=== PATIENT | male | born 1955 | race American Indian/Alaskan Native ===

== ENCOUNTER 2020-04-10 12:17 | Emergency (ER) | payer SELFPAY ==
[2020-04-10 12:56] VITALS: BP 104/64
--- NOTE | 2020-04-10 13:28 | Emergency Department Report ---
ED Back Pain/Injury HPI - General Chief Complaint: Back Pain/Injury Stated Complaint: BACK PAIN Time Seen by Provider: 04/10/20 13:23 Source: patient Limitations: No Limitations - History of Present Illness Initial Comments: 64-year-old male with past medical history of HIV presents emergency department complaining of chronic back pain which is worsened yesterday when he lifted a sofa but also primarily needs a refill of his medications not related to his chronic cough history. Reports no numbness or tingling to his groin area there is no saddle paresthesias or significant loss of bowel or bladder. MD Complaint: back pain Similar Symptoms Previously: Yes Place: home Severity: mild Quality: aching Consistency: constant Improves With: none Worsens With: movement Context: while lifting, turning/twisting Associated Symptoms: denies: confusion, chest pain, difficulty walking, incontinence, constipation, headaches, abdominal pain, rash, seizure, shortness of breath - Related Data Home Medications Medication Instructions Recorded Confirmed Last Taken Elviteg/Melissa/Emtric/Tenofo Ala 1 each PO DAILY 03/31/16 03/31/16 03/31/16 [Genvoya (Nf)] Previous Rx's Medication Instructions Recorded Last Taken Type Naproxen Sodium (Nf) [Anaprox DS 550 mg PO BID PRN #20 tablet 10/13/13 Unknown Rx TAB] levoFLOXacin [Levaquin TAB] 750 mg PO QDAY #7 tablet 04/03/16 Unknown Rx Allergies Allergy/AdvReac Type Severity Reaction Status Date / Time No Known Allergies Allergy Verified 10/13/13 06:34 ED Review of Systems ROS: Stated complaint: BACK PAIN Other details as noted in HPI Comment: All other systems reviewed and negative ED Past Medical Hx - Past Medical History Previous Medical History?: Yes Hx HIV: Yes ("about 20 years") - Surgical History Past Surgical History?: Yes Hx Appendectomy: Yes - Social History Smoking Status: Current Some Day Smoker Substance Use Type: None - Medications Home Medications: Home Medications Medication Instructions Recorded Confirmed Last Taken Type Naproxen Sodium (Nf) [Anaprox DS 550 mg PO BID PRN #20 tablet 10/13/13 03/31/16 Unknown Rx TAB] Elviteg/Melissa/Emtric/Tenofo Ala 1 each PO DAILY 03/31/16 03/31/16 03/31/16 History [Genvoya (Nf)] levoFLOXacin [Levaquin TAB] 750 mg PO QDAY #7 tablet 04/03/16 Unknown Rx ED Physical Exam - General Limitations: No Limitations General appearance: alert, in no apparent distress - Head Head exam: Present: atraumatic, normocephalic - Eye Eye exam: Present: normal appearance - ENT ENT exam: Present: mucous membranes moist - Neck Neck exam: Present: normal inspection - Respiratory Respiratory exam: Present: normal lung sounds bilaterally. Absent: respiratory distress - Cardiovascular Cardiovascular Exam: Present: regular rate, normal rhythm. Absent: systolic murmur, diastolic murmur, rubs, gallop - GI/Abdominal GI/Abdominal exam: Present: soft, normal bowel sounds - Rectal Rectal exam: Present: deferred - Extremities Exam Extremities exam: Present: normal inspection - Back Exam Back exam: Present: normal inspection, other (Negative seated straight leg raise. Normal Sebastian's test. No CVA tenderness is noted.) - Neurological Exam Neurological exam: Present: alert, oriented X3, CN II-XII intact - Psychiatric Psychiatric exam: Present: normal affect, normal mood - Skin Skin exam: Present: warm, dry, intact, normal color. Absent: rash ED Course Vital Signs 04/10/20 04/10/20 12:54 13:22 Temperature 97.8 F 97.8 F Pulse Rate 71 71 Respiratory 20 20 Rate Blood Pressure 104/64 104/64 O2 Sat by Pulse 98 98 Oximetry Critical care attestation.: If time is entered above; I have spent that time in minutes in the direct care of this critically ill patient, excluding procedure time. ED Disposition Clinical Impression: Medication refill, Chronic pain Disposition: Z-07 MED SCREENING EXAM-LEFT Is pt being admited?: No Does the pt Need Aspirin: No Condition: Stable Instructions: Chronic Back Pain (ED) Referrals: [facility] [Provider Group] - 3-5 Days
== END 2020-04-10 14:00 | disposition left against medical advice (07) ==
LOC: ED 12:17
DX: G89.29 Other chronic pain (principal); M54.89 Other dorsalgia; F17.200 Nicotine dependence, unspecified, uncomplicated; Z76.0 Encounter for issue of repeat prescription; Z90.49 Acquired absence of other specified parts of digestive tract
CPT/HCPCS: 99282

== ENCOUNTER 2020-12-23 16:52 | Emergency (ER) | payer SELFPAY ==
[2020-12-23 17:19] LABS: Basophils % (Auto) 0.3 % (0.0-1.8); Eosinophils # (Auto) 0.1 K/mm3 (0.0-0.4); Eosinophils % (Auto) 1.5 % (0.0-4.3); Hematocrit 43.6 % (35.5-45.6); Hemoglobin 14.7 gm/dl (11.8-15.2); Lymphocytes # (Auto) 1.2 K/mm3 (1.2-5.4); Mean Corpuscular HGB Conc 34 % (32-34); Mean Corpuscular Volume 91 fl (84-94); Monocytes # (Auto) 0.7 K/mm3 (0.0-0.8); Platelet Count 135 K/mm3 (140-440); Red Cell Distribution Width 13.5 % (13.2-15.2)
--- NOTE | 2020-12-23 17:30 | Event Note ---
ED Screening Note Date of service: 12/23/20 Time: 17:28 ED Screening Note: This initial assessment/diagnostic orders/clinical plan/treatment(s) is/are subject to change based on patients health status, clinical progression and re- assessment by fellow clinical providers in the ED. Further treatment and workup at subsequent clinical providers discretion. Patient/guardian urged not to elope from the ED as their condition may be serious if not clinically assessed and managed. Initial orders include: Mr. Herzog is a 65-year-old -[place] male with a history of being HIV positive states that he has been off his medicine for months now. He is complaining of right flank pain nausea loose stools and chills x2 weeks. He denies chest pain or shortness of breath no coughing.
[2020-12-23 17:39] LABS: Alanine Aminotransferase 13 units/L (7-56); Albumin 3.4 g/dL (3.9-5); BUN/Creatinine Ratio 15; Blood Urea Nitrogen 16 mg/dL (9-20); Calcium 8.2 mg/dL (8.4-10.2); Hemolysis Index 7
[2020-12-23 17:41] LABS: Bilirubin,Direct < 0.2 mg/dL (0-0.2)
[2020-12-23] MEDS ORDERED: ONDANSETRON 4 MG/2 ML INJ IV ONE (18:06)
[2020-12-23] MEDS ORDERED: SODIUM CHLORIDE 0.9% 1000 ML 1,000 ML IV ONE (18:06)
--- NOTE | 2020-12-23 18:08 | Emergency Department Report ---
HPI - General Chief Complaint: Abdominal Pain Time Seen by Provider: 12/23/20 17:56 - HPI HPI: This is a 65-year-old -[place] male presents to the emergency department with a 1 week history of right lower flank pain, nausea with vomiting, diarrhea and intermittent headaches. Patient has a history of HIV but admits to medication noncompliance. He does not have a primary care physician or infectious disease doctor that he follows with. He has not taken anything for symptoms prior to presentation. He denies any fever, chest pain, cough, dys uria. No recent travel or sick contacts at home. No known exposure to anyone with COVID-19. Certain movements exacerbate the flank pain, but no known alleviating factors. The flank pain is currently at a 7 out of 10 in intensity. ED Past Medical Hx - Past Medical History Hx HIV: Yes ("about 20 years") - Surgical History Hx Appendectomy: Yes - Social History Smoking Status: Never Smoker Substance Use Type: None - Medications Home Medications: Home Medications Medication Instructions Recorded Confirmed Last Taken Type Naproxen Sodium (Nf) [Anaprox DS 550 mg PO BID PRN #20 tablet 10/13/13 03/31/16 Unknown Rx TAB] Elviteg/Melissa/Emtric/Tenofo Ala 1 each PO DAILY 03/31/16 03/31/16 03/31/16 History [Genvoya (Nf)] levoFLOXacin [Levaquin TAB] 750 mg PO QDAY #7 tablet 04/03/16 Unknown Rx Acetaminophen/Codeine [Tylenol 1 tab PO Q6H PRN #7 tab 05/26/20 Unknown Rx /Codeine # 3 tab] Sulfamethoxazole/Trimethoprim 1 each PO BID 7 Days #14 tablet 05/26/20 Unknown Rx [Bactrim DS TAB] Ondansetron [Zofran Odt] 4 mg PO Q8HR PRN #12 tab.rapdis 12/23/20 Unknown Rx ED Review of Systems ROS: Stated complaint: RT FLANK PAIN Other details as noted in HPI Comment: All other systems reviewed and negative Constitutional: denies: chills, fever Eyes: denies: eye pain, eye discharge ENT: denies: ear pain, throat pain Respiratory: shortness of breath. denies: cough Cardiovascular: denies: chest pain, palpitations Gastrointestinal: abdominal pain, nausea, vomiting, diarrhea Genitourinary: denies: dysuria, discharge Musculoskeletal: denies: back pain, arthralgia Skin: denies: rash, lesions Neurological: denies: weakness, numbness Physical Exam - Physical Exam Vital Signs: Vital Signs 12/23/20 16:58 Temperature 98.2 F Pulse Rate 118 H Respiratory 15 Rate Blood Pressure 128/77 O2 Sat by Pulse 97 Oximetry Physical Exam: GENERAL: The patient is well-developed well-nourished. HENT: Normocephalic. Atraumatic. Patient has moist mucous membranes. EYES: Extraocular motions are intact. NECK: Supple. Trachea is midline. CHEST/LUNGS: Clear to auscultation. There is no respiratory distress noted. HEART/CARDIOVASCULAR: Regular. There is mild tachycardia. There is no murmur. ABDOMEN: Abdomen is soft. There is some reproducible right-sided abdominal and right flank pain to palpation. No guarding. Patient has normal bowel sounds. There is no abdominal distention. SKIN: Skin is warm and dry. NEURO: The patient is awake, alert, and oriented. The patient is cooperative. The patient has no focal neurologic deficits. Normal speech. MUSCULOSKELETAL: There is no tenderness or deformity. There is no limitation range of motion. ED Course Vital Signs 12/23/20 16:58 Temperature 98.2 F Pulse Rate 118 H Respiratory 15 Rate Blood Pressure 128/77 O2 Sat by Pulse 97 Oximetry ED Medical Decision Making - Lab Data Result diagrams: 12/23/20 17:09 12/23/20 17:09 Lab Results 12/23/20 12/23/20 12/23/20 Range/Units 17:09 17:09 18:34 WBC 4.6 (4.5-11.0) K/mm3 RBC 4.80 (3.65-5.03) M/mm3 Hgb 14.7 (11.8-15.2) gm/dl Hct 43.6 (35.5-45.6) % MCV 91 (84-94) fl MCH 31 (28-32) pg MCHC 34 (32-34) % RDW 13.5 (13.2-15.2) % Plt Count 135 L (140-440) K/mm3 Lymph % (Auto) 26.0 (13.4-35.0) % [place] % (Auto) 15.0 H (0.0-7.3) % Eos % (Auto) 1.5 (0.0-4.3) % Baso % (Auto) 0.3 (0.0-1.8) % Lymph # (Auto) 1.2 (1.2-5.4) K/mm3 [place] # (Auto) 0.7 (0.0-0.8) K/mm3 Eos # (Auto) 0.1 (0.0-0.4) K/mm3 Baso # (Auto) 0.0 (0.0-0.1) K/mm3 Seg Neutrophils % 57.2 (40.0-70.0) % Seg Neutrophils # 2.6 (1.8-7.7) K/mm3 Sodium 133 L (137-145) mmol/L Potassium 4.6 (3.6-5.0) mmol/L Chloride 98.1 (98-107) mmol/L Carbon Dioxide 26 (22-30) mmol/L Anion Gap 14 mmol/L BUN 16 (9-20) mg/dL Creatinine 1.1 (0.8-1.3) mg/dL Estimated GFR > 60 ml/min BUN/Creatinine Ratio 15 % Glucose 72 L (75-100) mg/dL Calcium 8.2 L (8.4-10.2) mg/dL Total Bilirubin 0.50 (0.1-1.2) mg/dL Direct Bilirubin < 0.2 (0-0.2) mg/dL Indirect Bilirubin 0.3 mg/dL AST 29 (5-40) units/L ALT 13 (7-56) units/L Alkaline Phosphatase 87 (35-129) units/L Total Protein 8.3 H (6.3-8.2) g/dL Albumin 3.4 L (3.9-5) g/dL Albumin/Globulin Ratio 0.7 % Lipase 19 (13-60) units/L Urine Color Yellow (Yellow) Urine Turbidity Slightly-cloudy (Clear) Urine pH 5.0 (5.0-7.0) Ur Specific [place] 1.019 (1.003-1.030) Urine Protein 30 mg/dl (Negative) mg/dL Urine Glucose (UA) Neg (Negative) mg/dL Urine Ketones Tr (Negative) mg/dL Urine Blood Mod (Negative) Urine Nitrite Neg (Negative) Urine Bilirubin Neg (Negative) Urine Urobilinogen < 2.0 (<2.0) mg/dL Ur Leukocyte Esterase Neg (Negative) Urine WBC (Auto) < 1.0 (0.0-6.0) /HPF Urine RBC (Auto) 1.0 (0.0-6.0) /HPF U Epithel Cells (Auto) < 1.0 (0-13.0) /HPF Urine Mucus 1+ /HPF - Radiology Data Radiology results: report reviewed CT ABDOMEN AND PELVIS WITHOUT CONTRAST INDICATION / CLINICAL INFORMATION: right flank pain. TECHNIQUE: Axial CT images were obtained through the abdomen and pelvis without IV contrast. All CT scans at this location are performed using CT dose reduction for ALARA by means of automated exposure control. COMPARISON: None available. FINDINGS: LOWER CHEST: There is focal airspace opacity in the right middle lobe. LIVER: No significant abnormality. GALLBLADDER: No significant abnormality. BILE DUCTS: No significant abnormality. PANCREAS: No significant abnormality. SPLEEN: No significant abnormality. ADRENALS: No significant abnormality. RIGHT KIDNEY and URETER: No significant abnormality. LEFT KIDNEY and URETER: No significant abnormality. STOMACH and SMALL BOWEL: No significant abnormality. COLON: No significant abnormality. APPENDIX: Not seen. There are surgical clips in the right lower quadrant near the tip of the cecum suggesting prior appendectomy. PERITONEUM: No free fluid. No free air. No fluid collection. LYMPH NODES: No significant adenopathy. AORTA and ARTERIES: Mild atherosclerotic calcification without acute abnormality. IVC and VEINS: No significant abnormality. URINARY BLADDER: No significant abnormality. REPRODUCTIVE ORGANS: No significant abnormality. ADDITIONAL FINDINGS: None. SKELETAL SYSTEM: No acute abnormality IMPRESSION: 1. There is no obstruction, inflammation, or free air. There are no abnormal fluid collections. No renal or ureteral calculi are seen. There is no hydronephrosis. - Medical Decision Making This patient presents to the emergency department with a complaint of right flank pain. He also says there has been some nausea with vomiting and intermittent headaches, but it appears that his most concerning symptom is the flank pain. It is reproducible to palpation. However the abdomen is soft, nondistended and nontoxic in appearance. Patient's labs have been unremarkable including CBC, metabolic panel and urinal ysis. The patient was given some IV fluid resuscitation, IV antiemetic, IV analgesia, and a dose of NSAIDs. He had a CT scan of the abdomen pelvis without any contrast that was essentially normal examination. No evidence of obstructive uropathy, no signs of appendicitis, diverticulosis/diverticulitis, or any other acute process. The patient was reevaluated multiple times over multiple hours and feels improved. He appears safe for discharge home at this time. Patient has been given multiple outpatient referrals for primary care physicians, as well as a referral for infectious disease. He will return to the emergency department with any worsening of his symptoms or with any acute distress. Critical Care Time: No Critical care attestation.: If time is entered above; I have spent that time in minutes in the direct care of this critically ill patient, excluding procedure time. ED Disposition Clinical Impression: Right flank pain, History of HIV infection Nausea & vomiting Qualifiers: Vomiting type: unspecified Vomiting Intractability: non-intractable Qualified Code(s): R11.2 - Nausea with vomiting, unspecified Disposition: TO HOME OR SELFCARE Is pt being admited?: No Condition: Stable Instructions: Nausea and Vomiting, Adult, Flank Pain, Adult Additional Instructions: Please follow-up with a primary care physician in the next few days. I am givi ng you a referral for a few different local primary care physicians and clinics. I am also giving you a referral for Dr. Motta, a local infectious disease physician, to follow-up regarding your history of HIV. Return to the emergency department with any worsening of your symptoms, new or concerning symptoms not addressed during this current emergency department visit, or with any acute distress. Prescriptions: Ondansetron [Zofran Odt] 4 mg PO Q8HR PRN #12 tab.rapdis PRN Reason: Nausea Referrals: ARLET GREGORIO MD [Staff Physician] - 3-5 Days JUAN SALDIVAR MD [Staff Physician] - 3-5 Days ARAVIND MOTTA MD [Staff Physician] - 3-5 Days [facility] [Provider Group] - 3-5 Days Time of Disposition: 20:39
[2020-12-23] MEDS ORDERED: KETOROLAC 30 MG/1 ML INJ IV ONE (18:40)
[2020-12-23] MEDS ORDERED: MORPHINE 4 MG/1 ML INJ IV ONE (18:40)
[2020-12-23 18:41] VITALS: BP 118/77
--- NOTE | 2020-12-23 18:45 | XRay Report ---
CHEST / ABDOMEN 3 VIEW INDICATION / CLINICAL INFORMATION: Right sided abdominal pain, SOB. COMPARISON: Prior chest radiograph dated 04/01/2016 FINDINGS: SUPPORT DEVICES: None. HEART / MEDIASTINUM: No significant abnormality. LUNGS / PLEURA: No significant pulmonary or pleural abnormality. No pneumothorax. TUBES / LINES: None. BOWEL GAS PATTERN: No significant abnormality. Nonobstructive bowel gas pattern. FREE AIR / EXTRALUMINAL GAS: None seen. ADDITIONAL FINDINGS: None IMPRESSION: 1. No acute cardiac pulmonary process. 2. Nonobstructive bowel gas pattern. Signer Name: Yared Cordoba MD Signed: 12/23/2020 6:40 PM Workstation Name: [id number]
[2020-12-23 19:03] LABS: Bilirubin,Urine NEG (Negative); Blood,Urine MOD (Negative); Color,Urine Yellow (Yellow); Mucus,Urine 1+ /HPF; Urobilinogen,Urine < 2.0 mg/dL (<2.0); WBC,Urine < 1.0 /HPF (0.0-6.0)
--- NOTE | 2020-12-23 20:24 | Cat Scan Report ---
CT ABDOMEN AND PELVIS WITHOUT CONTRAST INDICATION / CLINICAL INFORMATION: right flank pain. TECHNIQUE: Axial CT images were obtained through the abdomen and pelvis without IV contrast. All CT scans at [facility] location are performed using CT dose reduction for ALARA by means of automated exposure control. COMPARISON: None available. FINDINGS: LOWER CHEST: There is focal airspace opacity in the right middle lobe. LIVER: No significant abnormality. GALLBLADDER: No significant abnormality. BILE DUCTS: No significant abnormality. PANCREAS: No significant abnormality. SPLEEN: No significant abnormality. ADRENALS: No significant abnormality. RIGHT KIDNEY and URETER: No significant abnormality. LEFT KIDNEY and URETER: No significant abnormality. STOMACH and SMALL BOWEL: No significant abnormality. COLON: No significant abnormality. APPENDIX: Not seen. There are surgical clips in the right lower quadrant near the tip of the cecum payne ggesting prior appendectomy. PERITONEUM: No free fluid. No free air. No fluid collection. LYMPH NODES: No significant adenopathy. AORTA and ARTERIES: Mild atherosclerotic calcification without acute abnormality. IVC and VEINS: No significant abnormality. URINARY BLADDER: No significant abnormality. REPRODUCTIVE ORGANS: No significant abnormality. ADDITIONAL FINDINGS: None. SKELETAL SYSTEM: No acute abnormality IMPRESSION: 1. There is no obstruction, inflammation, or free air. There are no abnormal fluid collections. No re nal or ureteral calculi are seen. There is no hydronephrosis. Signer Name: Chele Jean Baptiste MD Signed: 12/23/2020 8:20 PM Workstation Name: [id number]
== END 2020-12-23 20:57 | disposition home or self-care (01) ==
LOC: ED 16:52
DX: R11.2 Nausea with vomiting, unspecified (principal); R10.9 Unspecified abdominal pain; Z79.899 Other long term (current) drug therapy; Z21 Asymptomatic human immunodeficiency virus [HIV] infection status
CPT/HCPCS: 36415; 74022; 74176; 80048; 80076; 81001; 83690; 85025; 96374; 96375; 99284; J1885; J2270; J2405; J7030

== ENCOUNTER 2021-09-13 13:32 | Emergency (ER) | payer SELFPAY ==
[2021-09-13] MEDS ORDERED: SODIUM CHLORIDE 0.9% 1000 ML 1,000 ML IV ONE (15:22)
[2021-09-13] MEDS ORDERED: FAMOTIDINE 20 MG/2 ML INJ IV ONE (15:22)
[2021-09-13] MEDS ORDERED: ONDANSETRON 4 MG/2 ML INJ IV ONE (15:22)
[2021-09-13 15:58] LABS: Hemoglobin 13.5 gm/dl (11.8-15.2); Mean Corpuscular HGB Conc 33 % (32-34); Mean Corpuscular Volume 88 fl (84-94); Platelet Count 154 K/mm3 (140-440); Red Blood Count 4.66 M/mm3 (3.65-5.03); Red Cell Distribution Width 14.2 % (13.2-15.2)
[2021-09-13 16:12] LABS: Alanine Aminotransferase 11 units/L (7-56); Albumin 3.2 g/dL (3.9-5); BUN/Creatinine Ratio 21; Blood Urea Nitrogen 17 mg/dL (9-20); Calcium 8.4 mg/dL (8.4-10.2); Hemolysis Index 5
[2021-09-13 17:15] LABS: Total Cells Counted 100
[2021-09-13 17:16] LABS: Platelet Estimate Consistent w Auto; RBC Morphology Normal
--- NOTE | 2021-09-13 17:36 | Cat Scan Report ---
CT ABDOMEN AND PELVIS WITH CONTRAST INDICATION / CLINICAL INFORMATION: upper abd pain and difficulty swallowing. TECHNIQUE: Axial CT images were obtained through the abdomen and pelvis after 100 cc of Omnipaque [address] scans at this location are performed using CT dose reduction for ALARA by means of automated exposure control. COMPARISON: 12/23/2020 FINDINGS: LOWER CHEST: Focal parenchymal opacity in the right middle lobe persists. This has shown mild decreas e in size when compared to the prior study. This area measures approximately 1 cm currently and measu red approximately 1.7 cm previously. There is some wall thickening noted in the distal esophagus. LIVER: No significant abnormality. GALLBLADDER: No significant abnormality. BILE DUCTS: No significant abnormality. PANCREAS: No significant abnormality. SPLEEN: No significant abnormality. ADRENALS: No significant abnormality. RIGHT KIDNEY / URETER: No significant abnormality. LEFT KIDNEY / URETER: No significant abnormality. STOMACH / SMALL BOWEL: No significant abnormality. COLON: No significant abnormality. APPENDIX: Not visualized. Surgical clips are noted suggesting prior appendectomy. PERITONEUM: No free fluid. No free air. No fluid collection. LYMPH NODES: There is shotty adenopathy in the groins AORTA / ARTERIES: Mild atherosclerotic calcification without acute abnormality. IVC / VEINS: No significant abnormality. URINARY BLADDER: No significant abnormality. REPRODUCTIVE ORGANS: No significant abnormality. ADDITIONAL FINDINGS: None. SKELETAL SYSTEM: No significant abnormality. IMPRESSION: 1. There is no obstruction, inflammation, or free air. There are no abnormal fluid collections. There is some wall thickening in the distal esophagus which could represent esophagitis. This is not speci fic. 2. There are nonspecific shotty nodes in the groins bilaterally. 3. There is some persistent parenchymal opacity in the right middle lobe the lung. This has shown dilshad e improvement since the prior study but has not resolved in the interval. This could represent some p ersistent pneumonia. This could represent scar. The possibility that this could represent pulmonary n odule at the site of prior airspace disease is considered. This does have a somewhat more nodular mariann earance on today's study though it is smaller. Alternatives for follow-up include PET CT scan or 3 mo nth follow-up CT scan.1 Signer Name: Chele Jean Baptiste MD Signed: 09/13/2021 5:32 PM Workstation Name: [id number]
--- NOTE | 2021-09-13 18:03 | Emergency Department Report ---
ED Abdominal Pain HPI - General Chief Complaint: Abdominal Pain Stated Complaint: HURTS TO EAT/SOB WHEN WALKING Time Seen by Provider: 09/13/21 15:15 Source: patient Mode of arrival: Ambulatory Limitations: No Limitations - History of Present Illness Initial Comments: Patient is a 66-year-old F [place] male who is presenting with several weeks of difficulties with swallowing. Patient states when the eats he feels as though the food gets stuck in the epigastrium. Has constant pain in this area. Patient can swallow liquids with no issue. Feels nauseous but no history of vomiting. Patient states he does have some discomfort radiating to the back. Denies fevers chills cough cold or congestion at this time. - Related Data Home Medications Medication Instructions Recorded Confirmed Last Taken Elviteg/Melissa/Emtric/Tenofo Ala 1 each PO DAILY 03/31/16 03/31/16 03/31/16 [Genvoya (Nf)] Previous Rx's Medication Instructions Recorded Last Taken Type Naproxen Sodium (Nf) [Anaprox DS 550 mg PO BID PRN #20 tablet 10/13/13 Unknown Rx TAB] levoFLOXacin [Levaquin TAB] 750 mg PO QDAY #7 tablet 04/03/16 Unknown Rx Acetaminophen/Codeine [Tylenol 1 tab PO Q6H PRN #7 tab 05/26/20 Unknown Rx /Codeine # 3 tab] Sulfamethoxazole/Trimethoprim 1 each PO BID 7 Days #14 tablet 05/26/20 Unknown Rx [Bactrim DS TAB] Ondansetron [Zofran Odt] 4 mg PO Q8HR PRN #12 tab.rapdis 12/23/20 Unknown Rx Famotidine [Pepcid] 40 mg PO QHS #20 tablet 09/13/21 Unknown Rx Ondansetron [Zofran Odt] 4 mg PO Q8HR #10 tab.rapdis 09/13/21 Unknown Rx Pantoprazole [Protonix] 40 mg PO QDAY #30 tablet 09/13/21 Unknown Rx Allergies Allergy/AdvReac Type Severity Reaction Status Date / Time No Known Allergies Allergy Verified 12/23/20 16:56 ED Review of Systems ROS: Stated complaint: HURTS TO EAT/SOB WHEN WALKING Other details as noted in HPI Comment: All other systems reviewed and negative ED Past Medical Hx - Past Medical History Previous Medical History?: Yes Hx HIV: Yes ("about 20 years") - Surgical History Past Surgical History?: Yes Hx Appendectomy: Yes - Social History Smoking Status: Never Smoker Substance Use Type: None - Medications Home Medications: Home Medications Medication Instructions Recorded Confirmed Last Taken Type Naproxen Sodium (Nf) [Anaprox DS 550 mg PO BID PRN #20 tablet 10/13/13 03/31/16 Unknown Rx TAB] Elviteg/Melissa/Emtric/Tenofo Ala 1 each PO DAILY 03/31/16 03/31/16 03/31/16 History [Genvoya (Nf)] levoFLOXacin [Levaquin TAB] 750 mg PO QDAY #7 tablet 04/03/16 Unknown Rx Acetaminophen/Codeine [Tylenol 1 tab PO Q6H PRN #7 tab 05/26/20 Unknown Rx /Codeine # 3 tab] Sulfamethoxazole/Trimethoprim 1 each PO BID 7 Days #14 tablet 05/26/20 Unknown Rx [Bactrim DS TAB] Ondansetron [Zofran Odt] 4 mg PO Q8HR PRN #12 tab.rapdis 12/23/20 Unknown Rx Famotidine [Pepcid] 40 mg PO QHS #20 tablet 09/13/21 Unknown Rx Ondansetron [Zofran Odt] 4 mg PO Q8HR #10 tab.rapdis 09/13/21 Unknown Rx Pantoprazole [Protonix] 40 mg PO QDAY #30 tablet 09/13/21 Unknown Rx ED Physical Exam - General Limitations: No Limitations General appearance: alert, in no apparent distress - Head Head exam: Present: atraumatic, normocephalic - Eye Eye exam: Present: normal appearance, PERRL, EOMI - ENT ENT exam: Present: mucous membranes moist - Neck Neck exam: Present: normal inspection - Respiratory Respiratory exam: Present: normal lung sounds bilaterally. Absent: respiratory distress, wheezes, rales, rhonchi - Cardiovascular Cardiovascular Exam: Present: regular rate, normal rhythm, normal heart sounds. Absent: systolic murmur, diastolic murmur, rubs, gallop - GI/Abdominal GI/Abdominal exam: Present: soft, normal bowel sounds. Absent: distended, tenderness, guarding, rebound - Rectal Rectal exam: Present: deferred - Extremities Exam Extremities exam: Present: normal inspection - Back Exam Back exam: Present: normal inspection - Neurological Exam Neurological exam: Present: alert, oriented X3 - Psychiatric Psychiatric exam: Present: normal affect, normal mood - Skin Skin exam: Present: warm, dry, intact, normal color. Absent: rash ED Course Vital Signs 09/13/21 13:54 Temperature 98.7 F Pulse Rate 108 H Respiratory 20 Rate Blood Pressure 123/72 O2 Sat by Pulse 97 Oximetry ED Medical Decision Making - Lab Data Result diagrams: 09/13/21 Unknown 09/13/21 Unknown Lab Results 09/13/21 09/13/21 Range/Units Unknown Unknown WBC 3.4 L (4.5-11.0) K/mm3 RBC 4.66 (3.65-5.03) M/mm3 Hgb 13.5 (11.8-15.2) gm/dl Hct 41.0 (35.5-45.6) % MCV 88 (84-94) fl MCH 29 (28-32) pg MCHC 33 (32-34) % RDW 14.2 (13.2-15.2) % Plt Count 154 (140-440) K/mm3 Real % (Auto) Safe [employer]osit Att[employer] Add Manual Diff Complete Total Counted 100 Seg Neuts % (Manual) 80.0 H (40.0-70.0) % Lymphocytes % (Manual) 10.0 L (13.4-35.0) % Reactive Lymphs % (Man) 1.0 % Monocytes % (Manual) 8.0 H (0.0-7.3) % Eosinophils % (Manual) 1.0 (0.0-4.3) % Nucleated RBC % Not Reportable Seg Neutrophils # Man 2.7 (1.8-7.7) K/mm3 Band Neutrophils # 0.0 K/mm3 Lymphocytes # (Manual) 0.3 L (1.2-5.4) K/mm3 Abs React Lymphs (Man) 0.0 K/mm3 Monocytes # (Manual) 0.3 (0.0-0.8) K/mm3 Eosinophils # (Manual) 0.0 (0.0-0.4) K/mm3 Basophils # (Manual) 0.0 (0.0-0.1) K/mm3 Metamyelocytes # 0.0 K/mm3 Myelocytes # 0.0 K/mm3 Promyelocytes # 0.0 K/mm3 Blast Cells # 0.0 K/mm3 WBC Morphology Not Reportable Hypersegmented Neuts Not Reportable Hyposegmented Neuts Not Reportable Hypogranular Neuts Not Reportable Smudge Cells Not Reportable Toxic Granulation Not Reportable Toxic Vacuolation Not Reportable Dohle Bodies Not Reportable Pelger-Huet Anomaly Not Reportable Freddie Rods Not Reportable Platelet Estimate Consistent w auto Clumped Platelets Not Reportable Plt Clumps, EDTA Not Reportable Large Platelets Not Reportable Giant Platelets Not Reportable Platelet Satelliting Not Reportable Plt Morphology Comment Not Reportable RBC Morphology Normal Dimorphic RBCs Not Reportable Polychromasia Not Reportable Hypochromasia Not Reportable Poikilocytosis Not Reportable Anisocytosis Not Reportable Microcytosis Not Reportable Macrocytosis Not Reportable Spherocytes Not Reportable Pappenheimer Bodies Not Reportable Sickle Cells Not Reportable Target Cells Not Reportable Tear Drop Cells Not Reportable Ovalocytes Not Reportable Helmet Cells Not Reportable Roe-Tsaile Bodies Not Reportable Anza Rings Not Reportable Anamoose Cells Not Reportable Bite Cells Not Reportable Crenated Cell Not Reportable Elliptocytes Not Reportable Acanthocytes (Spur) Not Reportable Rouleaux Not Reportable Hemoglobin C Crystals Not Reportable Schistocytes Not Reportable Malaria parasites Not Reportable Medardo Bodies Not Reportable Hem Pathologist Commnt No Sodium 134 L (137-145) mmol/L Potassium 4.1 (3.6-5.0) mmol/L Chloride 98.9 (98-107) mmol/L Carbon Dioxide 26 (22-30) mmol/L Anion Gap 13 mmol/L BUN 17 (9-20) mg/dL Creatinine 0.8 (0.8-1.3) mg/dL Estimated GFR > 60 ml/min BUN/Creatinine Ratio 21 % Glucose 83 (75-100) mg/dL Calcium 8.4 (8.4-10.2) mg/dL Total Bilirubin 0.40 (0.1-1.2) mg/dL AST 24 (5-40) units/L ALT 11 (7-56) units/L Alkaline Phosphatase 80 (35-129) units/L Total Protein 8.7 H (6.3-8.2) g/dL Albumin 3.2 L (3.9-5) g/dL Albumin/Globulin Ratio 0.6 % Lipase 20 (13-60) units/L - Radiology Data CT ABDOMEN AND PELVIS WITH CONTRAST INDICATION / CLINICAL INFORMATION: upper abd pain and difficulty swallowing. TECHNIQUE: Axial CT images were obtained through the abdomen and pelvis after 100 cc of Omnipaque [address] scans at this location are performed using CT dose reduction for ALARA by means of automated exposure control. COMPARISON: 12/23/2020 FINDINGS: LOWER CHEST: Focal parenchymal opacity in the right middle lobe persists. This has shown mild decrease in size when compared to the prior study. This area measures approximately 1 cm currently and measured approximately 1.7 cm previously. There is some wall thickening noted in the distal esophagus. LIVER: No significant abnormality. GALLBLADDER: No significant abnormality. BILE DUCTS: No significant abnormality. PANCREAS: No significant abnormality. SPLEEN: No significant abnormality. ADRENALS: No significant abnormality. RIGHT KIDNEY / URETER: No significant abnormality. LEFT KIDNEY / URETER: No significant abnormality. STOMACH / SMALL BOWEL: No significant abnormality. COLON: No significant abnormality. APPENDIX: Not visualized. Surgical clips are noted suggesting prior appendectomy. PERITONEUM: No free fluid. No free air. No fluid collection. LYMPH NODES: There is shotty adenopathy in the groins AORTA / ARTERIES: Mild atherosclerotic calcification without acute abnormality. IVC / VEINS: No significant abnormality. URINARY BLADDER: No significant abnormality. REPRODUCTIVE ORGANS: No significant abnormality. ADDITIONAL FINDINGS: None. SKELETAL SYSTEM: No significant abnormality. IMPRESSION: 1. There is no obstruction, inflammation, or free air. There are no abnormal fluid collections. There is some wall thickening in the distal esophagus which could represent esophagitis. This is not specific. 2. There are nonspecific shotty nodes in the groins bilaterally. 3. There is some persistent parenchymal opacity in the right middle lobe the lung. This has shown some improvement since the prior study but has not resolved in the interval. This could represent some persistent pneumonia. This could represent scar. The possibility that this could represent pulmonary nodule at the site of prior airspace disease is considered. This does have a somewhat more nodular appearance on today's study though it is smaller. Alternatives for follow-up include PET CT scan or 3 month follow-up CT scan.1 Signer Name: Chele Jean Baptiste MD Signed: 09/13/2021 5:32 PM Workstation Name: [employer] - Medical Decision Making Patient had no obstruction found on CT. Patient given GI follow-up given med ication for symptomatic relief. Critical care attestation.: If time is entered above; I have spent that time in minutes in the direct care of this critically ill patient, excluding procedure time. ED Disposition Clinical Impression: Esophagitis Disposition: 01 HOME / SELF CARE / HOMELESS Is pt being admited?: No Does the pt Need Aspirin: No Condition: Stable Instructions: Esophagitis Referrals: [facility] [Provider Group] - 3-5 Days Time of Disposition: 18:03
[2021-09-13 18:34] VITALS: BP 124/76
== END 2021-09-13 19:01 | disposition home or self-care (01) ==
LOC: ED 13:32
DX: K20.90 Esophagitis, unspecified without bleeding (principal)
CPT/HCPCS: 36415; 74177; 80053; 83690; 85007; 85025; 96361; 96374; 96375; 99284; J2405; J7030; Q9967

== ENCOUNTER 2022-07-10 15:07 | Emergency (ER) | payer SELFPAY | END 2022-07-11 00:30 | disposition left against medical advice (07) | LOC: ED 15:07 | DX: K92.0 Hematemesis (principal); Z53.21 Procedure and treatment not carried out due to patient leaving prior to being seen by health care provider ==